=== PATIENT | female | born 1950 | race Caucasian/White ===

== ENCOUNTER 2019-08-09 14:10 | Inpatient (IN) | payer MEDICARE, MEDICAID ==
[2019-08-09] VITALS (21 sets, daily range): BP systolic 78–132; BP diastolic 52–94
[~2019-08-09] VITALS: Ht 165.1 cm; Wt 87.6 kg
[2019-08-09] MEDS ORDERED: SODIUM CHLORIDE 0.9% 1000ML BAG (SEPSIS BOLUS) IV ONE (14:45)
[2019-08-09] MEDS ORDERED: VANCOMYCIN 1 G PREMIX 200 ML IV ONE (14:45)
[2019-08-09] MEDS ORDERED: PIPERACILLIN/TAZ 3.375G PREMIX 50 ML IV ONE (14:45)
[2019-08-09] MEDS ORDERED: ETOMIDATE 2MG/ML 10ML VIAL IV ONE (14:47)
[2019-08-09] MEDS ORDERED: SUCCINYLCHOLINE CHLORIDE 200MG/10ML IV ONE (14:47)
[2019-08-09 14:59] LABS: HEMATOCRIT. 51.7 % (36.0-48.0); HEMOGLOBIN. 17.4 g/dL (12.0-16.0); MEAN CORPUSCULAR HEMOGLOBIN 32.4 pg (28.0-32.0); MEAN CORPUSCULAR VOLUME 96.2 fL (81.0-99.0); MEAN PLATELET VOLUME 9.3 fl (7.4-10.4); PLATELET 167 x1000/uL (130-400); RED BLOOD CELL COUNT 5.37 mill/uL (4.2-5.4); RED CELL DISTRIBUTION WIDTH 14.3 % (11.6-14.6)
[2019-08-09 15:06] LABS: CHLORIDE 110 mEq/L (98-107); INR 1.1; PROTHROMBIN TIME 11.8 sec (9.6-11.0)
[2019-08-09 15:10] LABS: ETHANOL BLOOD < 10 mg/dL
[2019-08-09 15:14] LABS: CREATINE KINASE 579 IU/L (26-192)
[2019-08-09] MEDS ORDERED: PROPOFOL 10MG/ML 100ML 100 ML IV ONE (15:30)
[2019-08-09 16:02] LABS: PLATELET ESTIMATE NORMAL
[2019-08-09] MEDS ORDERED: MAGNESIUM/ALUMINUM HYDROXIDE/SIMETHICONE 30ML UDC PO PRN (16:15)
[2019-08-09] MEDS ORDERED: NITROGLYCERIN 0.4MG TABLET SL SL PRN (16:15)
[2019-08-09] MEDS ORDERED: IPRATROPIUM/ALBUTEROL 0.5-3(2.5)MG/3ML NEB NEB PRN (16:15)
[2019-08-09] MEDS ORDERED: ONDANSETRON HCL 4MG/2ML INJ IV PRN (16:15)
[2019-08-09] MEDS ORDERED: NOREPINEPHRINE 4 MG in DEXT 5% WATER 246 ML IV PRN ×2 (16:15→18:00)
[2019-08-09] MEDS ORDERED: GUAIFENESIN 200MG/10ML SUGAR FREE UDC PO PRN (16:15)
[2019-08-09 16:57] LABS: CLARITY URINE TURBID (CLEAR); COLOR URINE DARK YELLOW (YELLOW); KETONES URINE TRACE (NEGATIVE); LEUKOCYTE ESTERASE URINE NEGATIVE (NEGATIVE); NITRITE URINE NEGATIVE (NEGATIVE); OCCULT BLOOD URINE 3+ (NEGATIVE); PH URINE 5.5 (4.5-8.0); PROTEIN URINE 3+ (NEGATIVE)
[2019-08-09 17:15] LABS: BG BASE EXCESS -3.5 mmol/L (-2.0-2.0); BG CARBOXYHEMOGLOBIN 0.8 % (0.5-1.5); BG DEOXYHEMOGLOBIN 0.4 % (0.0-5.0); BG FRACTION INSPIRED OXYGEN 100; BG HCO3 ACT 21.9 mmol/L (22.0-26.0); BG METHEMOGLOBIN 0.2 % (0.0-1.5); BG OXYGEN SATURATION 99.6 % (92.0-98.5); BG OXYHEMOGLOBIN 98.6 % (94.0-97.0); BG PCO2 40.7 mmHg (35.0-45.0); BG PH 7.348 (7.350-7.450); BG PO2 497.8 mmHg (75.0-100.0); BG SAMPLE SITE RIGHT RADIAL; BG TIDAL VOLUME(mL) 500 mL; BG TOTAL HEMOGLOBIN 15.4 g/dL (12.0-18.0); BG VENT MODE VENT - A/C; BG VENT RATE 12 set
[2019-08-09 17:16] LABS: *AMPHETAMINES SCREEN URINE NEGATIVE (NEGATIVE)
[2019-08-09 17:18] LABS: *BARBITURATES SCREEN URINE NEGATIVE (NEGATIVE); *BENZODIAZEPINES SCREEN URINE NEGATIVE (NEGATIVE); *COCAINE SCREEN URINE NEGATIVE (NEGATIVE); CANNABINOID URINE SCREEN NEGATIVE (NEGATIVE); METHADONE URINE SCREEN NEGATIVE (NEGATIVE); OPIATES URINE SCREEN NEGATIVE (NEGATIVE); PHENCYCLIDINE URINE SCREEN NEGATIVE (NEGATIVE)
[2019-08-09] MEDS: METHYLPREDNISOLONE SOD SUCC 40 MG/ML VIAL IV SCH (17:39)
[2019-08-09] MEDS: DEXT 5%/0.45% NACL 1000ML 1,000 ML IV SCH (17:40)
[2019-08-09] MEDS ORDERED: ENOXAPARIN 40MG/0.4ML SYR SUBCUT SCH (18:00)
[2019-08-09] MEDS: PROPOFOL 10MG/ML 100ML 100 ML IV PRN (18:45)
[2019-08-09] MEDS: IPRATROPIUM/ALBUTEROL 0.5-3(2.5)MG/3ML NEB HHN SCH (20:07)
[2019-08-09] MEDS ORDERED: METHYLPREDNISOLONE SOD SUCC 125 MG/2 ML VIAL IV SCH (22:00)
[2019-08-09 23:19] LABS: CREATINE KINASE MB FRACTION 8.8 ng/mL (0.5-3.6)
[2019-08-09] MEDS: PIPERACILLIN/TAZOBACTAM 3.375 G in DEXT 5% WATER 100 ML IV SCH (23:48)
[2019-08-10] VITALS (46 sets, daily range): BP systolic 104–136; BP diastolic 73–95
[2019-08-10] MEDS: IPRATROPIUM/ALBUTEROL 0.5-3(2.5)MG/3ML NEB HHN SCH ×6 (00:55→20:01)
[2019-08-10] MEDS: METHYLPREDNISOLONE SOD SUCC 40 MG/ML VIAL IV SCH ×3 (02:10→17:26)
[2019-08-10] MEDS: DEXT 5%/0.45% NACL 1000ML 1,000 ML IV SCH ×2 (02:10→16:19)
[2019-08-10 05:43] LABS: CREATINE KINASE MB FRACTION 6.9 ng/mL (0.5-3.6)
[2019-08-10] MEDS: PROPOFOL 10MG/ML 100ML 100 ML IV PRN ×2 (05:58→17:28)
[2019-08-10 06:10] LABS: HEPATITIS B SURFACE ANTIGEN NEGATIVE
[2019-08-10 06:40] LABS: HEPATITIS A AB IGM NEGATIVE (NEGATIVE)
[2019-08-10 07:38] LABS: BG BASE EXCESS -0.5 mmol/L (-2.0-2.0); BG CARBOXYHEMOGLOBIN 0.8 % (0.5-1.5); BG DEOXYHEMOGLOBIN 2.2 % (0.0-5.0); BG FRACTION INSPIRED OXYGEN 40; BG HCO3 ACT 24.2 mmol/L (22.0-26.0); BG METHEMOGLOBIN 0.2 % (0.0-1.5); BG OXYGEN SATURATION 97.8 % (92.0-98.5); BG OXYHEMOGLOBIN 96.8 % (94.0-97.0); BG PCO2 40.3 mmHg (35.0-45.0); BG PH 7.397 (7.350-7.450); BG SAMPLE SITE RIGHT BRACHIAL; BG TIDAL VOLUME(mL) 500 mL; BG TOTAL HEMOGLOBIN 14.8 g/dL (12.0-18.0); BG VENT MODE VENT - A/C; BG VENT RATE 12 set
[2019-08-10 07:46] LABS: HEMATOCRIT. 43.9 % (36.0-48.0); HEMOGLOBIN. 14.8 g/dL (12.0-16.0); MEAN CORPUSCULAR HEMOGLOBIN 32.5 pg (28.0-32.0); MEAN CORPUSCULAR VOLUME 96.6 fL (81.0-99.0); MEAN PLATELET VOLUME 10.2 fl (7.4-10.4); PLATELET 131 x1000/uL (130-400); RED BLOOD CELL COUNT 4.54 mill/uL (4.2-5.4); RED CELL DISTRIBUTION WIDTH 14.1 % (11.6-14.6)
[2019-08-10 07:57] LABS: PHOSPHORUS 3.4 mg/dL (2.5-4.9)
[2019-08-10] MEDS: ASPIRIN 325MG EC TABLET PO SCH (08:41)
[2019-08-10] MEDS: PIPERACILLIN/TAZOBACTAM 3.375 G in DEXT 5% WATER 100 ML IV SCH ×2 (08:41→19:25)
[2019-08-10] MEDS: ENOXAPARIN 100MG/ML SYR SUBCUT SCH ×2 (08:42→17:25)
[2019-08-10] MEDS: PANTOPRAZOLE SODIUM 40 MG/VIAL IV SCH (08:42)
[2019-08-10 09:44] LABS: PLATELET ESTIMATE NORMAL
[2019-08-10] MEDS: VANCOMYCIN 1 G PREMIX 200 ML IV SCH (10:09)
[2019-08-10] MEDS ORDERED: ENOXAPARIN 40MG/0.4ML SYR SUBCUT SCH (18:00)
[2019-08-10] MEDS: ASCORBIC ACID 500 MG TABLET PO SCH (20:45)
[2019-08-10] MEDS: ZINC SULFATE 220 MG ( 50 ) CAPSULE PO SCH (20:46)
[2019-08-11] VITALS (48 sets, daily range): BP systolic 119–167; BP diastolic 78–103
[2019-08-11] MEDS: IPRATROPIUM/ALBUTEROL 0.5-3(2.5)MG/3ML NEB HHN SCH ×6 (00:11→20:21)
[2019-08-11] MEDS: PIPERACILLIN/TAZOBACTAM 3.375 G in DEXT 5% WATER 100 ML IV SCH ×3 (01:21→17:58)
[2019-08-11] MEDS: METHYLPREDNISOLONE SOD SUCC 40 MG/ML VIAL IV SCH ×3 (01:21→17:59)
[2019-08-11] MEDS: VANCOMYCIN 1 G PREMIX 200 ML IV SCH ×2 (02:24→17:58)
[2019-08-11] MEDS: DEXT 5%/0.45% NACL 1000ML 1,000 ML IV SCH ×3 (02:25→17:59)
[2019-08-11] MEDS: PROPOFOL 10MG/ML 100ML 100 ML IV PRN ×4 (02:26→20:49)
[2019-08-11 05:10] LABS: HIV SCREEN 4G Non Reactive (Non Reactive)
[2019-08-11] MEDS: ENOXAPARIN 100MG/ML SYR SUBCUT SCH ×2 (05:13→17:59)
[2019-08-11 05:26] LABS: CHLORIDE 110 mEq/L (98-107)
[2019-08-11 05:31] LABS: HEMATOCRIT. 41.2 % (36.0-48.0); HEMOGLOBIN. 13.9 g/dL (12.0-16.0); MEAN CORPUSCULAR HEMOGLOBIN 32.7 pg (28.0-32.0); MEAN CORPUSCULAR VOLUME 97.3 fL (81.0-99.0); MEAN PLATELET VOLUME 9.5 fl (7.4-10.4); PLATELET 124 x1000/uL (130-400); RED BLOOD CELL COUNT 4.23 mill/uL (4.2-5.4); RED CELL DISTRIBUTION WIDTH 14.1 % (11.6-14.6)
[2019-08-11 05:36] LABS: CREATINE KINASE 130 IU/L (26-192)
[2019-08-11 05:39] LABS: CREATINE KINASE MB FRACTION 1.6 ng/mL (0.5-3.6)
[2019-08-11 07:12] LABS: PLATELET ESTIMATE SLIGHTLY DECREASED
[2019-08-11 07:38] LABS: BG BASE EXCESS 0.9 mmol/L (-2.0-2.0); BG CARBOXYHEMOGLOBIN 0.5 % (0.5-1.5); BG DEOXYHEMOGLOBIN 1.2 % (0.0-5.0); BG FRACTION INSPIRED OXYGEN 40; BG HCO3 ACT 25.7 mmol/L (22.0-26.0); BG METHEMOGLOBIN 0.3 % (0.0-1.5); BG OXYGEN SATURATION 98.8 % (92.0-98.5); BG PCO2 41.9 mmHg (35.0-45.0); BG PH 7.406 (7.350-7.450); BG PO2 149.4 mmHg (75.0-100.0); BG SAMPLE SITE RIGHT RADIAL; BG TIDAL VOLUME(mL) 500 mL; BG VENT MODE VENT - A/C; BG VENT RATE 12 set
[2019-08-11] MEDS: ASPIRIN 325MG EC TABLET PO SCH (08:48)
[2019-08-11] MEDS: ZINC SULFATE 220 MG ( 50 ) CAPSULE PO SCH (08:48)
[2019-08-11] MEDS: PANTOPRAZOLE SODIUM 40 MG/VIAL IV SCH (08:48)
[2019-08-11] MEDS: ASCORBIC ACID 500 MG TABLET PO SCH (08:48)
[2019-08-11] MEDS ORDERED: ALEN70TA68 MT (10:52)
[2019-08-11] MEDS ORDERED: ASPI-1393 PO (10:59)
[2019-08-11] MEDS ORDERED: LOSA50TA41 PO (10:59)
[2019-08-11] MEDS ORDERED: ATOR20TA65 PO (10:59)
[2019-08-11] MEDS ORDERED: CHOL100022 PO (10:59)
[2019-08-11] MEDS ORDERED: IPRA3AMP31 IH (11:48)
[2019-08-11] MEDS ORDERED: IOHEXOL-350 100 ML BOTTLE ONE (17:03)
[2019-08-11] MEDS ORDERED: ATORVASTATIN CALCIUM 20MG TABLET PO SCH (21:00)
[2019-08-12] VITALS (47 sets, daily range): BP systolic 103–167; BP diastolic 66–111
[2019-08-12] MEDS: IPRATROPIUM/ALBUTEROL 0.5-3(2.5)MG/3ML NEB HHN SCH ×6 (00:10→20:19)
[2019-08-12] MEDS: METHYLPREDNISOLONE SOD SUCC 40 MG/ML VIAL IV SCH ×3 (01:08→19:09)
[2019-08-12] MEDS: CLONIDINE 0.1MG TABLET PO PRN (01:09)
[2019-08-12] MEDS: PIPERACILLIN/TAZOBACTAM 3.375 G in DEXT 5% WATER 100 ML IV SCH ×2 (01:09→09:05)
[2019-08-12] MEDS: VANCOMYCIN 1 G PREMIX 200 ML IV SCH ×2 (03:38→15:08)
[2019-08-12] MEDS: ENOXAPARIN 100MG/ML SYR SUBCUT SCH ×2 (05:26→19:09)
[2019-08-12 05:32] LABS: HEMATOCRIT. 39.2 % (36.0-48.0); HEMOGLOBIN. 13.3 g/dL (12.0-16.0); MEAN CORPUSCULAR HEMOGLOBIN 32.8 pg (28.0-32.0); MEAN CORPUSCULAR VOLUME 96.6 fL (81.0-99.0); MEAN PLATELET VOLUME 10.1 fl (7.4-10.4); PLATELET 130 x1000/uL (130-400); RED BLOOD CELL COUNT 4.06 mill/uL (4.2-5.4); RED CELL DISTRIBUTION WIDTH 13.8 % (11.6-14.6)
[2019-08-12 05:38] LABS: CHLORIDE 107 mEq/L (98-107)
[2019-08-12 05:47] LABS: CREATINE KINASE 100 IU/L (26-192)
[2019-08-12] MEDS: DEXT 5%/0.45% NACL 1000ML 1,000 ML IV SCH ×3 (07:59→20:03)
[2019-08-12] MEDS: PANTOPRAZOLE SODIUM 40 MG/VIAL IV SCH (08:00)
[2019-08-12] MEDS: LOSARTAN POTASSIUM 50 MG TABLET PO SCH (08:00)
[2019-08-12] MEDS: ZINC SULFATE 220 MG ( 50 ) CAPSULE PO SCH (08:00)
[2019-08-12] MEDS: ASCORBIC ACID 500 MG TABLET PO SCH (08:00)
[2019-08-12] MEDS: ASPIRIN 325MG EC TABLET PO SCH (08:00)
[2019-08-12] MEDS: PROPOFOL 10MG/ML 100ML 100 ML IV PRN ×3 (08:01→21:24)
[2019-08-12] MEDS: ACETAMINOPHEN 325MG TABLET PO PRN (13:10)
[2019-08-12 14:17] LABS: PLATELET ESTIMATE NORMAL
[2019-08-12 18:59] LABS: T4 FREE 1.41 ng/dL (0.76-1.46)
[2019-08-12] MEDS: CEFAZOLIN 1000MG PREMIX 50 ML IV SCH (19:29)
[2019-08-13] VITALS (48 sets, daily range): BP systolic 114–189; BP diastolic 64–117
[2019-08-13] MEDS: IPRATROPIUM/ALBUTEROL 0.5-3(2.5)MG/3ML NEB HHN SCH ×6 (00:08→21:02)
[2019-08-13] MEDS: CEFAZOLIN 1000MG PREMIX 50 ML IV SCH ×3 (03:29→18:14)
[2019-08-13] MEDS: METHYLPREDNISOLONE SOD SUCC 40 MG/ML VIAL IV SCH ×3 (03:29→21:42)
[2019-08-13 05:11] LABS: HEMATOCRIT. 40.5 % (36.0-48.0); HEMOGLOBIN. 13.6 g/dL (12.0-16.0); MEAN CORPUSCULAR HEMOGLOBIN 32.5 pg (28.0-32.0); MEAN CORPUSCULAR VOLUME 96.8 fL (81.0-99.0); MEAN PLATELET VOLUME 9.5 fl (7.4-10.4); PLATELET 137 x1000/uL (130-400); RED BLOOD CELL COUNT 4.18 mill/uL (4.2-5.4); RED CELL DISTRIBUTION WIDTH 14.3 % (11.6-14.6)
[2019-08-13 05:21] LABS: CHLORIDE 105 mEq/L (98-107)
[2019-08-13] MEDS: PROPOFOL 10MG/ML 100ML 100 ML IV PRN (05:26)
[2019-08-13] MEDS: ENOXAPARIN 100MG/ML SYR SUBCUT SCH ×2 (06:54→18:14)
[2019-08-13] MEDS: DEXT 5%/0.45% NACL 1000ML 1,000 ML IV SCH ×2 (06:56→18:14)
[2019-08-13 07:50] LABS: PLATELET ESTIMATE NORMAL
[2019-08-13 08:30] LABS: BG BASE EXCESS 4.6 mmol/L (-2.0-2.0); BG DEOXYHEMOGLOBIN 1.5 % (0.0-5.0); BG FRACTION INSPIRED OXYGEN 40; BG HCO3 ACT 29.9 mmol/L (22.0-26.0); BG METHEMOGLOBIN 0.3 % (0.0-1.5); BG OXYGEN SATURATION 98.5 % (92.0-98.5); BG OXYHEMOGLOBIN 98.2 % (94.0-97.0); BG PH 7.422 (7.350-7.450); BG PO2 128.1 mmHg (75.0-100.0); BG SAMPLE SITE RIGHT RADIAL; BG TIDAL VOLUME(mL) 500 mL; BG TOTAL HEMOGLOBIN 14.3 g/dL (12.0-18.0); BG VENT MODE VENT - A/C; BG VENT RATE 12 set
[2019-08-13] MEDS: LOSARTAN POTASSIUM 50 MG TABLET PO SCH (08:36)
[2019-08-13] MEDS: ZINC SULFATE 220 MG ( 50 ) CAPSULE PO SCH (08:36)
[2019-08-13] MEDS: ASCORBIC ACID 500 MG TABLET PO SCH (08:36)
[2019-08-13] MEDS: PANTOPRAZOLE SODIUM 40 MG/VIAL IV SCH (08:36)
[2019-08-13] MEDS: ASPIRIN 325MG EC TABLET PO SCH (08:37)
[2019-08-13 15:52] LABS: BG BASE EXCESS 4.5 mmol/L (-2.0-2.0); BG CARBOXYHEMOGLOBIN 0.6 % (0.5-1.5); BG DEOXYHEMOGLOBIN 5.5 % (0.0-5.0); BG FRACTION INSPIRED OXYGEN 35; BG HCO3 ACT 29.8 mmol/L (22.0-26.0); BG METHEMOGLOBIN 0.1 % (0.0-1.5); BG OXYGEN SATURATION 94.5 % (92.0-98.5); BG OXYHEMOGLOBIN 93.8 % (94.0-97.0); BG PCO2 46.6 mmHg (35.0-45.0); BG PH 7.424 (7.350-7.450); BG PRESSURE SUPPORT 8; BG SAMPLE SITE LEFT RADIAL; BG TOTAL HEMOGLOBIN 15.3 g/dL (12.0-18.0); BG VENT MODE VENT - CPAP
[2019-08-13] MEDS: NICOTINE 14MG PATCH TD SCH (16:08)
[2019-08-13] MEDS: CLONIDINE 0.1MG TABLET PO PRN (21:42)
[2019-08-13] MEDS: ACETAMINOPHEN 325MG TABLET PO PRN (21:51)
[2019-08-14] VITALS (35 sets, daily range): BP systolic 95–178; BP diastolic 41–109
[2019-08-14] MEDS: IPRATROPIUM/ALBUTEROL 0.5-3(2.5)MG/3ML NEB HHN SCH ×6 (00:17→20:35)
[2019-08-14] MEDS: CEFAZOLIN 1000MG PREMIX 50 ML IV SCH ×3 (02:43→17:53)
[2019-08-14] MEDS: ENOXAPARIN 100MG/ML SYR SUBCUT SCH ×2 (06:03→17:54)
[2019-08-14] MEDS: DEXT 5%/0.45% NACL 1000ML 1,000 ML IV SCH ×2 (06:04→16:14)
[2019-08-14] MEDS: PANTOPRAZOLE SODIUM 40 MG/VIAL IV SCH (08:57)
[2019-08-14] MEDS: LOSARTAN POTASSIUM 50 MG TABLET PO SCH (08:57)
[2019-08-14] MEDS: NICOTINE 14MG PATCH TD SCH (08:57)
[2019-08-14] MEDS: METHYLPREDNISOLONE SOD SUCC 40 MG/ML VIAL IV SCH ×2 (08:57→19:36)
[2019-08-14] MEDS: ASCORBIC ACID 500 MG TABLET PO SCH (08:57)
[2019-08-14] MEDS: ASPIRIN 325MG EC TABLET PO SCH (08:57)
[2019-08-14] MEDS: ZINC SULFATE 220 MG ( 50 ) CAPSULE PO SCH (08:57)
[2019-08-14 09:14] LABS: HEMATOCRIT. 40.6 % (36.0-48.0); HEMOGLOBIN. 13.7 g/dL (12.0-16.0); MEAN CORPUSCULAR HEMOGLOBIN 32.5 pg (28.0-32.0); MEAN PLATELET VOLUME 9.3 fl (7.4-10.4); PLATELET 158 x1000/uL (130-400); RED BLOOD CELL COUNT 4.23 mill/uL (4.2-5.4)
[2019-08-14 09:27] LABS: CHLORIDE 105 mEq/L (98-107)
[2019-08-14 09:32] LABS: PHOSPHORUS 2.6 mg/dL (2.5-4.9)
[2019-08-14 09:53] LABS: PLATELET ESTIMATE NORMAL
[2019-08-14] MEDS ORDERED: ALPRAZOLAM 0.25 MG TABLET PO PRN (18:45)
[2019-08-15] VITALS (24 sets, daily range): BP systolic 121–165; BP diastolic 56–100
[2019-08-15] MEDS: IPRATROPIUM/ALBUTEROL 0.5-3(2.5)MG/3ML NEB HHN SCH ×6 (00:16→20:38)
[2019-08-15] MEDS: DEXT 5%/0.45% NACL 1000ML 1,000 ML IV SCH ×3 (02:14→23:00)
[2019-08-15] MEDS: CEFAZOLIN 1000MG PREMIX 50 ML IV SCH ×3 (05:03→17:22)
[2019-08-15] MEDS: ENOXAPARIN 100MG/ML SYR SUBCUT SCH ×2 (05:06→17:22)
[2019-08-15] MEDS: PANTOPRAZOLE SODIUM 40 MG/VIAL IV SCH (08:15)
[2019-08-15] MEDS: METHYLPREDNISOLONE SOD SUCC 40 MG/ML VIAL IV SCH ×2 (08:15→20:45)
[2019-08-15] MEDS: ZINC SULFATE 220 MG ( 50 ) CAPSULE PO SCH (08:15)
[2019-08-15] MEDS: ASCORBIC ACID 500 MG TABLET PO SCH (08:16)
[2019-08-15] MEDS: LOSARTAN POTASSIUM 50 MG TABLET PO SCH (08:16)
[2019-08-15] MEDS: ASPIRIN 325MG EC TABLET PO SCH (08:16)
[2019-08-15] MEDS: NICOTINE 14MG PATCH TD SCH (08:17)
[2019-08-15] MEDS ORDERED: POTASSIUM CHLORIDE 20MEQ TABLET SR PO NR (11:15)
[2019-08-15 11:37] LABS: HEMATOCRIT. 41.3 % (36.0-48.0); HEMOGLOBIN. 13.9 g/dL (12.0-16.0); MEAN CORPUSCULAR HEMOGLOBIN 32.2 pg (28.0-32.0); MEAN CORPUSCULAR VOLUME 95.6 fL (81.0-99.0); MEAN PLATELET VOLUME 9.1 fl (7.4-10.4); PLATELET 181 x1000/uL (130-400); RED BLOOD CELL COUNT 4.32 mill/uL (4.2-5.4); RED CELL DISTRIBUTION WIDTH 14.2 % (11.6-14.6)
[2019-08-15 11:51] LABS: CHLORIDE 104 mEq/L (98-107)
[2019-08-15 11:56] LABS: PLATELET ESTIMATE NORMAL
[2019-08-15 11:57] LABS: PHOSPHORUS 2.8 mg/dL (2.5-4.9)
[2019-08-15] MEDS: CLONIDINE 0.1MG TABLET PO PRN (14:02)
[2019-08-16] VITALS (12 sets, daily range): BP systolic 119–168; BP diastolic 59–103
[2019-08-16] MEDS: IPRATROPIUM/ALBUTEROL 0.5-3(2.5)MG/3ML NEB HHN SCH ×6 (00:59→21:37)
[2019-08-16] MEDS: CEFAZOLIN 1000MG PREMIX 50 ML IV SCH (02:00)
[2019-08-16] MEDS: CLONIDINE 0.1MG TABLET PO PRN (02:34)
[2019-08-16] MEDS: ENOXAPARIN 100MG/ML SYR SUBCUT SCH ×2 (06:13→18:05)
[2019-08-16] MEDS: DEXT 5%/0.45% NACL 1000ML 1,000 ML IV SCH ×2 (08:14→18:14)
[2019-08-16] MEDS: ASPIRIN 325MG EC TABLET PO SCH (09:39)
[2019-08-16] MEDS: PANTOPRAZOLE SODIUM 40 MG/VIAL IV SCH (09:39)
[2019-08-16] MEDS: ZINC SULFATE 220 MG ( 50 ) CAPSULE PO SCH (09:39)
[2019-08-16] MEDS: METHYLPREDNISOLONE SOD SUCC 40 MG/ML VIAL IV SCH (09:39)
[2019-08-16] MEDS: DOCUSATE SODIUM 100MG CAPSULE PO PRN (09:39)
[2019-08-16] MEDS: LOSARTAN POTASSIUM 50 MG TABLET PO SCH (09:39)
[2019-08-16] MEDS: ASCORBIC ACID 500 MG TABLET PO SCH (09:40)
[2019-08-16] MEDS: NICOTINE 14MG PATCH TD SCH (09:40)
[2019-08-16] MEDS: AMLODIPINE 2.5MG TABLET PO SCH ×2 (11:30→22:04)
[2019-08-17] VITALS (11 sets, daily range): BP systolic 103–152; BP diastolic 58–90
[2019-08-17] MEDS: IPRATROPIUM/ALBUTEROL 0.5-3(2.5)MG/3ML NEB HHN SCH ×6 (00:41→20:27)
[2019-08-17] MEDS: DEXT 5%/0.45% NACL 1000ML 1,000 ML IV SCH (04:14)
[2019-08-17] MEDS: ENOXAPARIN 100MG/ML SYR SUBCUT SCH ×2 (06:07→18:02)
[2019-08-17] MEDS: LOSARTAN POTASSIUM 50 MG TABLET PO SCH ×3 (09:48→17:58)
[2019-08-17] MEDS: ASPIRIN 325MG EC TABLET PO SCH (09:48)
[2019-08-17] MEDS: ZINC SULFATE 220 MG ( 50 ) CAPSULE PO SCH (09:49)
[2019-08-17] MEDS: PREDNISONE 20MG TABLET PO SCH (09:49)
[2019-08-17] MEDS: AMLODIPINE 2.5MG TABLET PO SCH ×2 (09:49→20:51)
[2019-08-17] MEDS: ASCORBIC ACID 500 MG TABLET PO SCH (09:49)
[2019-08-17] MEDS: PANTOPRAZOLE SODIUM 40 MG/VIAL IV SCH (09:50)
[2019-08-17] MEDS: NICOTINE 14MG PATCH TD SCH (09:51)
[2019-08-17 10:05] LABS: CHLORIDE 106 mEq/L (98-107)
[2019-08-17 13:46] LABS: HEMATOCRIT. 43.7 % (36.0-48.0); HEMOGLOBIN. 14.4 g/dL (12.0-16.0); MEAN CORPUSCULAR HEMOGLOBIN 31.8 pg (28.0-32.0); MEAN CORPUSCULAR VOLUME 96.6 fL (81.0-99.0); MEAN PLATELET VOLUME 8.8 fl (7.4-10.4); PLATELET 229 x1000/uL (130-400); RED BLOOD CELL COUNT 4.52 mill/uL (4.2-5.4); RED CELL DISTRIBUTION WIDTH 13.8 % (11.6-14.6)
[2019-08-17 14:05] LABS: PLATELET ESTIMATE NORMAL
[2019-08-17] MEDS: LACTOBACILLUS GG CAPSULE PO SCH (18:50)
[2019-08-18] VITALS (10 sets, daily range): BP systolic 109–137; BP diastolic 63–86
[2019-08-18] MEDS: IPRATROPIUM/ALBUTEROL 0.5-3(2.5)MG/3ML NEB HHN SCH ×6 (00:22→20:49)
[2019-08-18] MEDS: ENOXAPARIN 100MG/ML SYR SUBCUT SCH (05:26)
[2019-08-18] MEDS: ZINC SULFATE 220 MG ( 50 ) CAPSULE PO SCH (08:51)
[2019-08-18] MEDS: PREDNISONE 20MG TABLET PO SCH (08:51)
[2019-08-18] MEDS: LACTOBACILLUS GG CAPSULE PO SCH (08:51)
[2019-08-18] MEDS: ASCORBIC ACID 500 MG TABLET PO SCH (08:51)
[2019-08-18] MEDS: LOSARTAN POTASSIUM 50 MG TABLET PO SCH ×2 (08:52→19:48)
[2019-08-18] MEDS: PANTOPRAZOLE SODIUM 40 MG/VIAL IV SCH (08:52)
[2019-08-18] MEDS: ASPIRIN 325MG EC TABLET PO SCH (08:52)
[2019-08-18] MEDS: AMLODIPINE 2.5MG TABLET PO SCH ×2 (08:52→21:40)
[2019-08-18] MEDS: NICOTINE 14MG PATCH TD SCH (08:53)
[2019-08-18] MEDS: DEXT 5%/0.45% NACL 1000ML 1,000 ML IV SCH ×2 (10:57→20:03)
[2019-08-18 11:35] LABS: HEMATOCRIT. 40.1 % (36.0-48.0); HEMOGLOBIN. 13.5 g/dL (12.0-16.0); MEAN CORPUSCULAR HEMOGLOBIN 32.3 pg (28.0-32.0); MEAN PLATELET VOLUME 8.8 fl (7.4-10.4); PLATELET 225 x1000/uL (130-400); RED BLOOD CELL COUNT 4.18 mill/uL (4.2-5.4); RED CELL DISTRIBUTION WIDTH 14.1 % (11.6-14.6)
[2019-08-18 11:39] LABS: CHLORIDE 106 mEq/L (98-107)
[2019-08-18 11:57] LABS: PLATELET ESTIMATE NORMAL
[2019-08-18] MEDS: ENOXAPARIN 80MG/0.8ML SYR SUBCUT SCH (19:49)
[2019-08-19] VITALS (11 sets, daily range): BP systolic 101–140; BP diastolic 53–99
[2019-08-19] MEDS: IPRATROPIUM/ALBUTEROL 0.5-3(2.5)MG/3ML NEB HHN SCH ×6 (04:48→20:17)
[2019-08-19] MEDS: ENOXAPARIN 80MG/0.8ML SYR SUBCUT SCH ×2 (05:25→17:08)
[2019-08-19] MEDS: DEXT 5%/0.45% NACL 1000ML 1,000 ML IV SCH ×2 (05:25→16:00)
[2019-08-19] MEDS: PREDNISONE 20MG TABLET PO SCH (08:40)
[2019-08-19] MEDS: ASPIRIN 325MG EC TABLET PO SCH (08:40)
[2019-08-19] MEDS: LACTOBACILLUS GG CAPSULE PO SCH (08:40)
[2019-08-19] MEDS: LOSARTAN POTASSIUM 50 MG TABLET PO SCH ×2 (08:40→17:08)
[2019-08-19] MEDS: AMLODIPINE 2.5MG TABLET PO SCH ×2 (08:40→20:31)
[2019-08-19] MEDS: ASCORBIC ACID 500 MG TABLET PO SCH (08:41)
[2019-08-19] MEDS: PANTOPRAZOLE SODIUM 40 MG/VIAL IV SCH (08:41)
[2019-08-19] MEDS: NICOTINE 14MG PATCH TD SCH (08:41)
[2019-08-19] MEDS: ZINC SULFATE 220 MG ( 50 ) CAPSULE PO SCH (08:41)
[2019-08-19] MEDS: ATORVASTATIN CALCIUM 10MG TABLET PO SCH (20:30)
[2019-08-20] VITALS (12 sets, daily range): BP systolic 116–146; BP diastolic 65–101
[2019-08-20] MEDS: IPRATROPIUM/ALBUTEROL 0.5-3(2.5)MG/3ML NEB HHN SCH ×4 (00:16→12:13)
[2019-08-20] MEDS: DEXT 5%/0.45% NACL 1000ML 1,000 ML IV SCH ×3 (02:04→22:26)
[2019-08-20] MEDS: ENOXAPARIN 80MG/0.8ML SYR SUBCUT SCH (05:15)
[2019-08-20 07:35] LABS: BASOPHILS % 0.2 % (0.0-2.0); EOSINOPHILS % 2.2 % (0.0-5.0); HEMATOCRIT. 39.4 % (36.0-48.0); HEMOGLOBIN. 13.2 g/dL (12.0-16.0); LYMPHOCYTES % 7.1 % (20.0-50.0); MEAN CORPUSCULAR HEMOGLOBIN 32.5 pg (28.0-32.0); MEAN CORPUSCULAR VOLUME 96.5 fL (81.0-99.0); MEAN PLATELET VOLUME 8.6 fl (7.4-10.4); MONOCYTES % 9.2 % (2.0-8.0); NEUTROPHILS % 81.3 % (40.0-76.0); PLATELET 235 x1000/uL (130-400); RED BLOOD CELL COUNT 4.08 mill/uL (4.2-5.4); RED CELL DISTRIBUTION WIDTH 14.2 % (11.6-14.6)
[2019-08-20] MEDS: LACTOBACILLUS GG CAPSULE PO SCH (08:18)
[2019-08-20] MEDS: AMLODIPINE 2.5MG TABLET PO SCH (08:18)
[2019-08-20] MEDS: DOCUSATE SODIUM 100MG CAPSULE PO PRN (08:19)
[2019-08-20] MEDS: ASPIRIN 325MG EC TABLET PO SCH (08:19)
[2019-08-20] MEDS: ZINC SULFATE 220 MG ( 50 ) CAPSULE PO SCH (08:19)
[2019-08-20] MEDS: LOSARTAN POTASSIUM 50 MG TABLET PO SCH ×3 (08:19→17:25)
[2019-08-20] MEDS: FAMOTIDINE 20MG TABLET PO SCH ×2 (08:19→20:34)
[2019-08-20] MEDS: ASCORBIC ACID 500 MG TABLET PO SCH (08:19)
[2019-08-20] MEDS: NICOTINE 14MG PATCH TD SCH (08:20)
[2019-08-20 09:58] LABS: CHLORIDE 106 mEq/L (98-107)
[2019-08-20] MEDS: CLOPIDOGREL 75MG TABLET PO SCH (12:15)
[2019-08-20] MEDS ORDERED: POTASSIUM CHLORIDE 20MEQ TABLET SR PO NR (13:45)
[2019-08-20] MEDS: DILTIAZEM HCL 30MG TABLET PO SCH ×2 (17:13→17:23)
[2019-08-20] MEDS: ENOXAPARIN 100MG/ML SYR SUBCUT SCH (17:14)
[2019-08-20] MEDS: ATORVASTATIN CALCIUM 10MG TABLET PO SCH (20:34)
[2019-08-21] VITALS (10 sets, daily range): BP systolic 129–141; BP diastolic 78–90
[2019-08-21] MEDS: DILTIAZEM HCL 30MG TABLET PO SCH ×2 (06:19→10:20)
[2019-08-21] MEDS: ENOXAPARIN 100MG/ML SYR SUBCUT SCH (06:21)
[2019-08-21] MEDS: FAMOTIDINE 20MG TABLET PO SCH (09:00)
[2019-08-21] MEDS ORDERED: MULTIVITAMINS,THER W-MINERALS TABLET PO SCH (09:00)
[2019-08-21] MEDS: ZINC SULFATE 220 MG ( 50 ) CAPSULE PO SCH (10:20)
[2019-08-21] MEDS: NICOTINE 14MG PATCH TD SCH (10:21)
[2019-08-21] MEDS: LOSARTAN POTASSIUM 50 MG TABLET PO SCH (10:21)
[2019-08-21] MEDS: ASCORBIC ACID 500 MG TABLET PO SCH (10:21)
[2019-08-21] MEDS: LACTOBACILLUS GG CAPSULE PO SCH (10:21)
[2019-08-21] MEDS: CLOPIDOGREL 75MG TABLET PO SCH (10:21)
[2019-08-21] MEDS ORDERED: POTASSIUM CHLORIDE 20MEQ TABLET SR PO SCH (11:30)
[2019-08-24 19:09] LABS: OVA & PARASITE EXAM Final report (.)
== END 2019-08-21 17:32 | DRG 870 ==
LOC: ER 14:10 → CVICU 16:05 → EDBEDREQTM 16:07 → EDBEDREQ 16:07 → ENRESERV 16:09 → SUPCPDRO 16:12 → 3WST 08-15 21:07
PROVIDERS: ADMIT Internal Medicine; ATTEND Internal Medicine
PROC: 5A1955Z Respiratory Ventilation, Greater than 96 Consecutive Hours (ICD-10-PCS; principal; 2019-08-09)
PROC: 0BH17EZ Insertion of Endotracheal Airway into Trachea, Via Natural or Artificial Opening (ICD-10-PCS; 2019-08-09)
DX: A41.01 Sepsis due to Methicillin susceptible Staphylococcus aureus (principal); I21.4 Non-ST elevation (NSTEMI) myocardial infarction; J96.01 Acute respiratory failure with hypoxia; G92 Toxic encephalopathy; I26.99 Other pulmonary embolism without acute cor pulmonale; J69.0 Pneumonitis due to inhalation of food and vomit; M62.82 Rhabdomyolysis; N39.0 Urinary tract infection, site not specified; I82.412 Acute embolism and thrombosis of left femoral vein; Z99.11 Dependence on respirator [ventilator] status; R47.01 Aphasia; E87.2 Acidosis; I47.1 Supraventricular tachycardia; G82.20 Paraplegia, unspecified; I96 Gangrene, not elsewhere classified; I27.20 Pulmonary hypertension, unspecified; L89.892 Pressure ulcer of other site, stage 2; I45.10 Unspecified right bundle-branch block; J44.9 Chronic obstructive pulmonary disease, unspecified; B19.20 Unspecified viral hepatitis C without hepatic coma; M48.02 Spinal stenosis, cervical region; E78.5 Hyperlipidemia, unspecified; L89.899 Pressure ulcer of other site, unspecified stage; L89.029 Pressure ulcer of left elbow, unspecified stage; R29.6 Repeated falls; R13.10 Dysphagia, unspecified; D69.6 Thrombocytopenia, unspecified; E78.00 Pure hypercholesterolemia, unspecified; F17.210 Nicotine dependence, cigarettes, uncomplicated; I11.0 Hypertensive heart disease with heart failure; I50.9 Heart failure, unspecified; E87.6 Hypokalemia; E86.0 Dehydration; I35.1 Nonrheumatic aortic (valve) insufficiency; F64.9 Gender identity disorder, unspecified; Z79.899 Other long term (current) drug therapy; Z79.82 Long term (current) use of aspirin; Z78.1 Physical restraint status; Z91.81 History of falling; Z86.73 Personal history of transient ischemic attack (TIA), and cerebral infarction without residual deficits; Z79.01 Long term (current) use of anticoagulants; Z98.82 Breast implant status
CPT/HCPCS: 36415; 36600; 70551; 71045; 71275; 72141; 72146; 72148; 78580; 80048; 80061; 80202; 80305; 80320; 81003; 82140; 82375; 82550; 82553; 82705; 82805; 83036; 83605; 83735; 83880; 84100; 84134; 84145; 84439; 84443; 84478; 84481; 84484; 86705; 86709; 86803; 86850; 86900; 87015; 87045; 87070; 87177; 87209; 87340; 87389; 87427; 87449; 89055; 92523; 92610; 93005; 93306; 93970; 94002; 94003; 94640; 97110; 97163; 97166; 97530; 99285; A6261; C9113; J0330; J0690; J1650; J2543; J2704; J2920; J3370; J3490; J7030; J7060; J7512; J7620; Q9967; G0480

== ENCOUNTER 2024-06-22 17:38 | Emergency (ER) | payer MEDICARE, OTHER ==
[~2024-06-22] VITALS: Ht 177.8 cm; Wt 90.0 kg
[~2024-06-22 17:38] MED LIST: ALEN70TA79 MT; APIX5TAB PO; ASPI-1497 PO; ATOR20TA65 PO; CHOL100022 PO; CLOP-31 PO; FURO-152 PO; GUAI600T44 MT; LOSA50TA41 PO; P20 MT; SPIR25TA PO
[2024-06-22 17:43] VITALS: O2SAT 97
[2024-06-22 19:25] LABS: BASOPHILS % 0.5 % (0.0-2.0); EOSINOPHILS % 0.5 % (0.0-5.0); HEMATOCRIT. 39.8 % (42.0-52.0); HEMOGLOBIN. 12.5 g/dL (14.0-18.0); LYMPHOCYTES % 10.2 % (20.0-50.0); MEAN CORPUSCULAR HEMOGLOBIN 30.7 pg (28.0-32.0); MEAN CORPUSCULAR HGB CONC 31.5 g/dL (31.0-37.0); MEAN CORPUSCULAR VOLUME 97.3 fL (80.0-94.0); MEAN PLATELET VOLUME 7.6 fl (7.4-10.4); MONOCYTES % 10.5 % (2.0-8.0); NEUTROPHILS % 78.3 % (40.0-76.0); PLATELET 293 x1000/uL (130-400); RED BLOOD CELL COUNT 4.09 mill/uL (4.7-6.1); RED CELL DISTRIBUTION WIDTH 19.5 % (11.6-14.6); WHITE BLOOD COUNT 11.7 x1000/uL (4.5-11.0)
[2024-06-22 19:33] LABS: CHLORIDE 105 mEq/L (98-107); POTASSIUM 4.7 mEq/L (3.5-5.1); SODIUM 136 mEq/L (136-145)
[2024-06-22 19:34] LABS: CALCIUM 8.1 mg/dL (8.7-10.4); CARBON DIOXIDE 29 mEq/L (21-32)
[2024-06-22 19:39] LABS: CREATININE 0.5 mg/dL (0.6-1.3); GLUCOSE 121 mg/dL (70-105); UREA NITROGEN BLOOD 9 mg/dL (9-23)
[2024-06-22 19:41] LABS: ALANINE AMINOTRANSFERASE 184 IU/L (10-49); ALBUMIN 2.5 g/dL (3.2-4.8); ASPARTATE AMINOTRANSFERASE 148 IU/L (<34); BILIRUBIN TOTAL 5.3 mg/dL (0.1-1.0); PROTEIN TOTAL 5.1 g/dL (6.0-8.3)
[2024-06-22] MEDS ORDERED: CEPH500C2 MT (21:09)
[2024-06-22 21:59] VITALS: BP 146/99; PULSE 105; RESP 32; TEMP 36.50292; O2SAT 95
== END 2024-06-22 22:20 ==
LOC: ER 17:38
DX: I82.90 Acute embolism and thrombosis of unspecified vein (principal); M79.602 Pain in left arm; I10 Essential (primary) hypertension; J44.1 Chronic obstructive pulmonary disease with (acute) exacerbation; Z79.899 Other long term (current) drug therapy; Z79.82 Long term (current) use of aspirin
CPT/HCPCS: 36415; 73080; 80053; 85025; 93971; 99285